=== PATIENT | female | born 1995 | race Hispanic/Latino ===

== ENCOUNTER 2018-07-18 14:43 | Emergency (ER) ==
[~2018-07-18] VITALS: Ht 157.5 cm; Wt 81.2 kg
== END 2018-07-18 16:20 | disposition short-term general hospital (02) ==
LOC: ER 14:43
DX: M54.9 Dorsalgia, unspecified (principal)

== ENCOUNTER 2018-07-18 16:30 | Emergency (ER) | payer OTHER ==
[~2018-07-18] VITALS: Ht 157.5 cm; Wt 81.2 kg
== END 2018-07-18 18:19 | disposition home or self-care (01) ==
LOC: FSED 16:30
DX: M54.5 Low back pain (principal); M62.830 Muscle spasm of back
CPT/HCPCS: 81003; 81025; 99283